=== PATIENT | male | born 1980 | race Caucasian/White ===

== ENCOUNTER 2020-01-12 00:33 | Emergency (ER) | payer MEDICAID ==
[2020-01-12] MEDS ORDERED: TRANDATE 20 MG/4 ML SYRINGE IV ONE ×5 (00:46→01:27)
[2020-01-12] MEDS ORDERED: HUMULIN R SQ ONE ×2 (00:47→05:17)
[2020-01-12] MEDS ORDERED: HUMULIN R IV ONE (00:47)
[2020-01-12] MEDS ORDERED: HUMULIN R ONE ×3 (00:51→05:20)
[2020-01-12 01:26] LABS: A-aADO2 18; ABG HEMOGLOBIN 14.9; ABG POTASSIUM 3.1 (3.5-5.1); ABG SITE rb; ARTERIAL BLD GAS O2 SATURATION 98.6 % (95-100); ARTERIAL BLOOD GAS BASE EXCESS 1.1 (-2.0-2.0); ARTERIAL BLOOD GAS FIO2 21 %; ARTERIAL BLOOD GAS PCO2 28 mmHg (35-45); ARTERIAL BLOOD GAS PO2 97 mmHg (75-100); ARTERIAL BLOOD GAS pH 7.52 (7.35-7.45); CARBOXYHEMOGLOBIN 2.8 % THgb (0.0-6.9); HCO3- 22.9 (22-28); HGB O2 SAT 94.7 g/dF (94-100); Methhemoglobin 1.2 % (1.4-1.5); paO2 pAO1 0.84
[2020-01-12] MEDS ORDERED: TRANDATE 100 MG/20 ML MDV FOR DRIP IV ONE (01:30)
[2020-01-12 01:37] LABS: INR 1.22 (0.8-3.0); PROTIME 13.8 SECONDS (8.83-12.87)
[2020-01-12 01:37] LABS: Appearance CLEAR (CLEAR); Bilirubin NEGATIVE (NEGATIVE); Blood NEGATIVE Ery/ul (0-5); Glucose >=500 mg/dL (NEGATIVE); Ketones TRACE (NEGATIVE); Leukocyte Esterase NEGATIVE (NEGATIVE); Nitrite NEGATIVE (NEGATIVE); Protein,Urine Dip 100 (Negative); Specific Gravity 1.027 (1.005-1.025); Urobilinogen NEGATIVE mg/dL (0-1)
[2020-01-12 01:42] LABS: ALBUMIN 3.2 g/dL (3.5-5.0); ALKALINE PHOSPHATASE 86 U/L (38-126); ANION GAP 9.3 MEQ/L (5-15); BLOOD UREA NITROGEN 14 mg/dL (9-20); CHLORIDE 106 mmol/L (98-107); Calcium 7.6 mg/dL (8.4-10.2); Carbon Dioxide 21 mmol/L (22-30); Creatinine 1 0.76 mg/dL (0.66-1.25); EST GLOMERULAR FILTRATION RATE > 60.0 ML/MIN; Glucose 378 mg/dL (74-106); SGOT/AST 23 U/L (17-59); SGPT/ALT 31 U/L (0-50); SODIUM 133 mmol/L (137-145); Total Protein 5.9 g/dL (6.3-8.2)
[2020-01-12 01:45] LABS: ACETAMINOPHEN < 10 ug/ml (10-30); Absolute Neutrophil Ct (ANC) 6.43 (1.4-6.9); BASOPHIL % 0.4 % (0.0-0.4); Basophil (Absolute #) 0.03 (0-0.4); ETHYL ALCOHOL < 10 mg/dL (0-10); Eosinophil % 0.9 % (0.00-5.0); Eosinophil (Absolute #) 0.07 (0-0.5); Hematocrit 30.2 % (42-50); Hemoglobin 10.6 gm/dl (12.5-18.0); Lymphocyte (Absolute #) 0.77 (1.0-4.6); Mean Cell Volume 78.9 fl (78-100); Mean Corpuscular Hemoglobin 27.7 pg (26-32); Mean Corpuscular Hgb Concent. 35.1 g/dl (32-36); Mean Platelet Volume 10.9 fl (7.5-11.0); Monocyte (Absolute #) 0.39 (0.0-1.3); Monocytes % 5.1 % (0.0-12.0); Neutrophil % 83.6 % (36.0-66.0); Platelet Count 149 K/mm3 (150-450); Potassium 2.5 mmol/L (3.5-5.1); Red Blood Count 3.83 M/mm3 (4.1-5.6); Red Cell Distribution Width 12.2 % (11.5-14.0); SALICYLATE < 1.0 mg/dL (2-20); White Blood Count 7.7 K/mm3 (4.0-10.5)
[2020-01-12] MEDS ORDERED: Klor Con 10 MEQ PO ONE ×2 (01:46→01:47)
[2020-01-12 01:51] LABS: Amphetamine,Urine NEGATIVE (NEGATIVE); Barbiturate,Urine NEGATIVE (NEGATIVE); Benzodiazepine,Urine NEGATIVE (NEGATIVE); Cocaine,Urine NEGATIVE (NEGATIVE); Methadone,Urine NEGATIVE (NEGATIVE); Opiate,Urine NEGATIVE (NEGATIVE); PCP,Urine NEGATIVE (NEGATIVE); THC,Urine NEGATIVE (NEGATIVE)
[2020-01-12] MEDS ORDERED: VASOTEC I.V. 2.5 MG IV ONE ×2 (02:04→02:05)
--- NOTE | 2020-01-12 02:04 | ERPHSYRPT ---
- History of Present Illness Source: EMS Exam Limitations: clinical condition Patient Subjective Stated Complaint: per ems pt was found by friends and was confused. they stated that pt had been working in the garage all day. Triage Nursing Assessment: pt oriented to person on arrival to er. skin warm and dry. pt arrive per ambulance and moves to stretcher per self. respirations nonlabored with lungs cta. pt tearful at times. pt poor historian at this time. Physician History: 39 yo wm from [facility] w mental status changes/hyperglycemia/Hypertension. Pt arrived to ER markedly hypertensive w good airway. He was lethargic and disoriented to year. Pt complained of a FARFAN, so was rushed to CT where head CT was neg per ER read and slightly later neg per Rad. He was immediately given 20mg IV Labetalol/10U sq regular insulin/10U IV regular insulin, after accucheck was close to 500. Pt became more alert and denied focal weakness/trauma/chest pain/cough/fever/melena/hematochezia/dysuria/hematuria. After further questioning, it became apparent that pt had not been taking his Glucophage or hypertensive meds. Timing/Duration: other (Unknown) Severity: moderate Character of Deficits: other (Lethargy/confusion) Deficits: weak Baseline/Normal Cognition: alert oriented x 3 Current Cognition: alert/disoriented to time Associated Symptoms: confusion, fatigue, No fever, No chills, No loss of consciousness, No nausea, No vomiting, No weakness, No insomnia, No muscle sp asms, No numbness/tingling in legs/feet, No paresthesia, No ringing in ears, No seizures, No slurred speech, No trouble walking, No vision changes, No chest pain Allergies/Adverse Reactions: No Known Drug Allergies Allergy (Verified 01/12/20 02:04) Hx Tetanus, Diphtheria Vaccination/Date Given: Yes Hx Influenza Vaccination/Date Given: No Hx Pneumococcal Vaccination/Date Given: No Immunizations Up to Date: Yes Travel Risk - International Travel Have you traveled outside of the country in past 3 weeks: No - Coronavirus Screening Are you exhibiting any of the following symptoms?: No Close contact with a COVID-19 positive Pt in past 14-21 Days: No - Review of Systems Constitutional: No Symptoms, Fatigue, Lethargy Eyes: No Symptoms Ears, Nose, & Throat: No Symptoms Respiratory: No Symptoms Cardiac: No Symptoms Abdominal/Gastrointestinal: No Symptoms Genitourinary Symptoms: No Symptoms Musculoskeletal: No Symptoms Skin: No Symptoms Neurological: Headache Psychological: No Alcohol Abuse, No Drug Abuse, No Anxiety, No Depression, No Suicidal Ideations, No Homicidal Ideations, No Emotional Lability, No Hallucinations, No Memory Loss, No Mood Changes Endocrine: No Symptoms Hematologic/Lymphatic: No Symptoms Immunological/Allergic: No Symptoms - Past Medical History Pertinent Past Medical History: Yes Cardiac History: Hypertension Endocrine Medical History: Diabetes Type II Other Medical History: pt poor historian - Past Surgical History Past Surgical History: No Other Surgical History: pt poor historian - Social History Smoking Status: Current every day smoker How long have you smoked: 21 yrs Exposure to second hand smoke: No Drug Use: none Patient Lives Alone: No Significant Family History: no pertinent family hx - Nursing Vital Signs Nursing Vital Signs: Initial Vital Signs Temperature 98.2 F 01/12/20 00:35 Pulse Rate 78 01/12/20 00:35 Respiratory Rate 18 01/12/20 00:35 Blood Pressure 185/138 01/12/20 00:35 O2 Sat by Pulse Oximetry 100 01/12/20 00:35 Pain Scale Pain Intensity 0 - Jenny Coma Scale Best Eye Response (Kenyon): (4) open spontaneously Best Verbal Response (Jenny): (4) confused conversation Best Motor Response (Jenny): (6) obeys commands [place] Total: 14 - Physical Exam General Appearance: mild distress Eye Exam: bilateral eye: normal inspection, PERRL, EOMI Ears, Nose, Throat Exam: normal ENT inspection, TMs normal, pharynx normal Neck Exam: normal inspection, non-tender, No meningismus, No mass, No Brudzinski, No Kernig's Respiratory: normal breath sounds, lungs clear, airway intact Cardiovascular: regular rate/rhythm, normal peripheral pulses, No murmur Gastrointestinal: soft, normal bowel sounds, No tenderness Rectal Exam: deferred Back Exam: normal inspection, normal range of motion, No CVA tenderness, No vertebral tenderness Extremity Exam: normal inspection, normal range of motion, pelvis stable Peripheral Pulses: carotid (R): 2+, carotid (L): 2+ Mental Status: oriented x 3, lethargy communications strategist Exam: normal hearing, normal speech, PERRL, No abnormal gag reflex Motor/Sensory: no motor deficit, no sensory deficit, no pronator drift, negative Babinski's sign DTR: bicep (R): 2+, bicep (L): 2+, knee (R): 2+, knee (L): 2+ Skin Exam: normal color, warm, dry SpO2 Interpretation: normal SpO2: 100 O2 Delivery: Room Air - Course EKG Interpreted by Me: RATE (NSR/R74/Borderline prolonged QTc/Flattened T waves) - CT Exams Head CT Interpretation: Tele-radiologist Report (Nothing acute) Other CT Interpretation: Tele-radiologist Report (CTA head/neck neg per telerad) Ordered Tests: Active Orders 24 hr Category Date Time Status CT ANGIOGRAPHY NECK [CT] Routine Exams 01/12/20 02:58 Taken CTA HEAD W AND/OR WO CONTRAST [CT] Stat Exams 01/12/20 02:48 Taken HEAD WITHOUT CONTRAST [CT] Stat Exams 01/12/20 00:35 Taken ABG [ARTERIAL BLOOD GASES] Stat Lab 01/12/20 01:20 Completed ACETAMINOPHEN Stat Lab 01/12/20 01:10 Completed BMP Stat Lab 01/12/20 03:48 Completed CBC W DIFF Stat Lab 01/12/20 01:10 Completed CK (IN-HOUSE) [CK-Creatinine Phosphokinase] Stat Lab 01/12/20 01:10 Completed CMP Stat Lab 01/12/20 01:10 Completed CULTURE,URINE Stat Lab 01/12/20 01:03 Received ETHYL ALCOHOL Stat Lab 01/12/20 01:10 Completed Lactic Acid Stat Lab 01/12/20 01:10 Completed Lactic Acid Stat Lab 01/12/20 04:20 Completed POCT GLUCOSE Stat Lab 01/12/20 00:44 Completed POCT GLUCOSE Stat Lab 01/12/20 01:56 Completed POCT GLUCOSE Stat Lab 01/12/20 05:15 Completed PROTIME WITH INR Stat Lab 01/12/20 01:10 Completed SALICYLATE Stat Lab 01/12/20 01:10 Completed TROPONIN Q3H Lab 01/12/20 01:10 Completed TROPONIN Q3H Lab 01/12/20 05:15 Completed TROPONIN Q3H Lab 01/12/20 07:00 Ordered TROPONIN Q3H Lab 01/12/20 10:00 Ordered TROPONIN Q3H Lab 01/12/20 13:00 Ordered TROPONIN Q3H Lab 01/12/20 16:00 Ordered TROPONIN Q3H Lab 01/12/20 19:00 Ordered TROPONIN Q3H Lab 01/12/20 22:00 Ordered UA W/RFX UR CULTURE Stat Lab 01/12/20 01:03 Completed Urine Triage Profile Stat Lab 01/12/20 01:03 Completed Medication Summary Generic Name Dose Route Start Last Admin Trade Name Ally PRN Reason Stop Dose Admin Nicardipine HCl 25 mg/ Sodium 250 mls @ 50 mls/hr 01/12/20 02:45 01/12/20 06:02 Chloride IV 02/11/20 02:44 5 mg/hr .Q5H PRN 50 mls/hr TITRATE FOR BLOOD PRESSURE Titration Protocol 5 MG/HR Discontinued Medications Generic Name Dose Route Start Last Admin Trade Name Freq PRN Reason Stop Dose Admin Albuterol Sulfate 2.5 mg 01/12/20 05:41 Proventil 2.5 Mg/3 Ml Neb IH 01/12/20 05:42 STAT ONE Enalaprilat 1.25 mg 01/12/20 02:04 01/12/20 02:08 Vasotec I.V. 2.5 Mg IV 01/12/20 02:05 1.25 mg STAT ONE Administration Enalaprilat Confirm 01/12/20 02:05 Vasotec I.V. 2.5 Mg Administered 01/12/20 02:06 Dose 2.5 mg IV .STK-MED ONE Dextrose Confirm 01/12/20 02:49 Dextrose 5%/Water Iv Soln. 250 Ml Administered 01/12/20 02:50 Dose 250 mls @ ud IV .STK-MED ONE Sodium Chloride Confirm 01/12/20 02:56 Sodium Chloride 0.9% 250 Ml Administered 01/12/20 02:57 Dose 250 mls @ ud IV .STK-MED ONE Sodium Chloride 1,000 mls @ 999 mls/hr 01/12/20 04:19 01/12/20 05:32 Sodium Chloride 0.9% 1000 Ml IV 01/12/20 05:19 Infused .Q1H1M STA Infusion Sodium Chloride Confirm 01/12/20 04:21 Sodium Chloride 0.9% 1000 Ml Administered 01/12/20 04:22 Dose 1,000 mls @ ud .ROUTE .STK-MED ONE Insulin Human Regular 10 unit 01/12/20 00:47 01/12/20 00:53 Humulin R IV 01/12/20 00:48 10 unit STAT ONE Administration Insulin Human Regular 10 unit 01/12/20 00:47 01/12/20 00:54 Humulin R SQ 01/12/20 00:48 10 unit STAT ONE Administration Insulin Human Regular Confirm 01/12/20 00:51 Humulin R Administered 01/12/20 00:52 Dose 20 unit .ROUTE .STK-MED ONE Insulin Human Regular Confirm 01/12/20 00:52 Humulin R Administered 01/12/20 00:53 Dose 1 unit .ROUTE .STK-MED ONE Insulin Human Regular 10 unit 01/12/20 05:17 01/12/20 05:22 Humulin R SQ 01/12/20 05:18 10 unit STAT ONE Administration Insulin Human Regular Confirm 01/12/20 05:20 Humulin R Administered 01/12/20 05:21 Dose 10 unit .ROUTE .STK-MED ONE Ketorolac Tromethamine 15 mg 01/12/20 04:19 01/12/20 04:25 Toradol 30 Mg Injection IV 01/12/20 04:20 15 mg STAT ONE Administration Ketorolac Tromethamine Confirm 01/12/20 04:21 Toradol 30 Mg Injection Administered 01/12/20 04:22 Dose 30 mg .ROUTE .STK-MED ONE Labetalol HCl 20 mg 01/12/20 00:46 01/12/20 00:52 Trandate 20 Mg/5 Ml Syringe IV 01/12/20 00:47 20 mg STAT ONE Administration Labetalol HCl Confirm 01/12/20 00:46 Trandate 20 Mg/5 Ml Syringe Administered 01/12/20 00:47 Dose 20 mg IV .STK-MED ONE Labetalol HCl 40 mg 01/12/20 00:58 01/12/20 01:01 Trandate 20 Mg/5 Ml Syringe IV 01/12/20 00:59 40 mg STAT ONE Administration Labetalol HCl Confirm 01/12/20 00:59 Trandate 20 Mg/5 Ml Syringe Administered 01/12/20 01:00 Dose 40 mg IV .STK-MED ONE Labetalol HCl 80 mg 01/12/20 01:27 01/12/20 01:33 Trandate 20 Mg/5 Ml Syringe IV 01/12/20 01:28 80 mg STAT ONE Administration Labetalol HCl Confirm 01/12/20 01:30 Trandate 100 Mg/20 Ml Mdv For Drip Administered 01/12/20 01:31 Dose 100 mg IV .STK-MED ONE Nicardipine HCl Confirm 01/12/20 02:49 Cardene 25 Mg/10 Ml Administered 01/12/20 02:50 Dose 25 mg IV .STK-MED ONE Nicardipine HCl Confirm 01/12/20 02:56 Cardene 25 Mg/10 Ml Administered 01/12/20 02:57 Dose 25 mg IV .STK-MED ONE Potassium Chloride 40 meq 01/12/20 01:46 01/12/20 01:48 Klor Con 10 Meq PO 01/12/20 01:47 40 meq STAT ONE Administration Potassium Chloride Confirm 01/12/20 01:47 Klor Con 10 Meq Administered 01/12/20 01:48 Dose 40 meq PO .STK-MED ONE Lab/Rad Data: Laboratory Result Diagrams 01/12/20 01:10 01/12/20 03:48 Laboratory Results 01/12/20 01/12/20 01/12/20 Range/Units 05:15 05:15 04:20 WBC (4.0-10.5) K/mm3 RBC (4.1-5.6) M/mm3 Hgb (12.5-18.0) gm/dl Hct (42-50) % MCV (78-100) fl MCH (26-32) pg MCHC (32-36) g/dl RDW (11.5-14.0) % Plt Count (150-450) K/mm3 MPV (7.5-11.0) fl Gran % (36.0-66.0) % Eos # (Auto) (0-0.5) Absolute Lymphs (auto) (1.0-4.6) Absolute Monos (auto) (0.0-1.3) Lymphocytes % (24.0-44.0) % Monocytes % (0.0-12.0) % Eosinophils % (0.00-5.0) % Basophils % (0.0-0.4) % Absolute Granulocytes (1.4-6.9) Basophils # (0-0.4) PT (8.83-12.87) SECONDS INR (0.8-3.0) Puncture Site pCO2 (35-45) mmHg pO2 (75-100) mmHg Base Excess (-2.0-2.0) O2 Saturation (94-100) g/dF ABG pH (7.35-7.45) ABG HCO3 (22-28) ABG O2 Sat (Measured) (95-100) % Franck Test A-a Gradient a/A Ratio Hemoglobin Carboxyhemoglobin (0.0-6.9) % THgb Methemoglobin (1.4-1.5) % Temperature C POC O2 Flow Rate % Sodium (137-145) mmol/L Potassium (3.5-5.1) mmol/L Chloride (98-107) mmol/L Carbon Dioxide (22-30) mmol/L Anion Gap (5-15) MEQ/L BUN (9-20) mg/dL Creatinine (0.66-1.25) mg/dL Estimated GFR ML/MIN Glucose (74-106) mg/dL POC Glucometer 311 H (74 to 106) mg/dL Lactic Acid 3.1 H (0.4-2.0) Calcium (8.4-10.2) mg/dL Total Bilirubin (0.2-1.3) mg/dL AST (17-59) U/L ALT (0-50) U/L Alkaline Phosphatase (38-126) U/L Creatine Kinase (55-170) U/L Troponin I 0.026 (0.000-0.034) ng/mL Serum Total Protein (6.3-8.2) g/dL Albumin (3.5-5.0) g/dL Urine Color (YELLOW) Urine Appearance (CLEAR) Urine pH (5-6) Ur Specific [place] (1.005-1.025) Urine Protein (Negative) Urine Ketones (NEGATIVE) Urine Blood (0-5) Nato/ul Urine Nitrite (NEGATIVE) Urine Bilirubin (NEGATIVE) Urine Urobilinogen (0-1) mg/dL Ur Leukocyte Esterase (NEGATIVE) Urine WBC (Auto) (0-5) /HPF Urine RBC (Auto) (0-2) /HPF U Epithel Cells (Auto) (FEW) /HPF Urine Bacteria (Auto) (NEGATIVE) /HPF Urine Culture Reflexed (NO) Urine Glucose (NEGATIVE) mg/dL Salicylates (2-20) mg/dL Urine Opiates Level (NEGATIVE) Ur Methadone (NEGATIVE) Acetaminophen (10-30) ug/ml Urine Barbiturates (NEGATIVE) Ur Phencyclidine (PCP) (NEGATIVE) Urine Amphetamine (NEGATIVE) U Benzodiazepine Level (NEGATIVE) Urine Cocaine (NEGATIVE) Urine Marijuana (THC) (NEGATIVE) Ethyl Alcohol (0-10) mg/dL 01/12/20 01/12/20 01/12/20 Range/Units 03:48 01:56 01:20 WBC (4.0-10.5) K/mm3 RBC (4.1-5.6) M/mm3 Hgb (12.5-18.0) gm/dl Hct (42-50) % MCV (78-100) fl MCH (26-32) pg MCHC (32-36) g/dl RDW (11.5-14.0) % Plt Count (150-450) K/mm3 MPV (7.5-11.0) fl Gran % (36.0-66.0) % Eos # (Auto) (0-0.5) Absolute Lymphs (auto) (1.0-4.6) Absolute Monos (auto) (0.0-1.3) Lymphocytes % (24.0-44.0) % Monocytes % (0.0-12.0) % Eosinophils % (0.00-5.0) % Basophils % (0.0-0.4) % Absolute Granulocytes (1.4-6.9) Basophils # (0-0.4) PT (8.83-12.87) SECONDS INR (0.8-3.0) Puncture Site rb pCO2 28 L (35-45) mmHg pO2 97 (75-100) mmHg Base Excess 1.1 (-2.0-2.0) O2 Saturation 94.7 (94-100) g/dF ABG pH 7.52 H (7.35-7.45) ABG HCO3 22.9 (22-28) ABG O2 Sat (Measured) 98.6 (95-100) % Franck Test na A-a Gradient 18 a/A Ratio 0.84 Hemoglobin 14.9 Carboxyhemoglobin 2.8 (0.0-6.9) % THgb Methemoglobin 1.2 L (1.4-1.5) % Temperature 37.0 C POC O2 Flow Rate 21 % Sodium 132 L (137-145) mmol/L Potassium 3.4 L D 3.1 L (3.5-5.1) mmol/L Chloride 101 (98-107) mmol/L Carbon Dioxide 23 (22-30) mmol/L Anion Gap 11.0 (5-15) MEQ/L BUN 14 (9-20) mg/dL Creatinine 0.77 (0.66-1.25) mg/dL Estimated GFR > 60.0 ML/MIN Glucose 307 H (74-106) mg/dL POC Glucometer 271 H (74 to 106) mg/dL Lactic Acid (0.4-2.0) Calcium 8.6 (8.4-10.2) mg/dL Total Bilirubin (0.2-1.3) mg/dL AST (17-59) U/L ALT (0-50) U/L Alkaline Phosphatase (38-126) U/L Creatine Kinase (55-170) U/L Troponin I (0.000-0.034) ng/mL Serum Total Protein (6.3-8.2) g/dL Albumin (3.5-5.0) g/dL Urine Color (YELLOW) Urine Appearance (CLEAR) Urine pH (5-6) Ur Specific [place] (1.005-1.025) Urine Protein (Negative) Urine Ketones (NEGATIVE) Urine Blood (0-5) Nato/ul Urine Nitrite (NEGATIVE) Urine Bilirubin (NEGATIVE) Urine Urobilinogen (0-1) mg/dL Ur Leukocyte Esterase (NEGATIVE) Urine WBC (Auto) (0-5) /HPF Urine RBC (Auto) (0-2) /HPF U Epithel Cells (Auto) (FEW) /HPF Urine Bacteria (Auto) (NEGATIVE) /HPF Urine Culture Reflexed (NO) Urine Glucose (NEGATIVE) mg/dL Salicylates (2-20) mg/dL Urine Opiates Level (NEGATIVE) Ur Methadone (NEGATIVE) Acetaminophen (10-30) ug/ml Urine Barbiturates (NEGATIVE) Ur Phencyclidine (PCP) (NEGATIVE) Urine Amphetamine (NEGATIVE) U Benzodiazepine Level (NEGATIVE) Urine Cocaine (NEGATIVE) Urine Marijuana (THC) (NEGATIVE) Ethyl Alcohol (0-10) mg/dL 01/12/20 01/12/20 01/12/20 Range/Units 01:10 01:10 01:10 WBC (4.0-10.5) K/mm3 RBC (4.1-5.6) M/mm3 Hgb (12.5-18.0) gm/dl Hct (42-50) % MCV (78-100) fl MCH (26-32) pg MCHC (32-36) g/dl RDW (11.5-14.0) % Plt Count (150-450) K/mm3 MPV (7.5-11.0) fl Gran % (36.0-66.0) % Eos # (Auto) (0-0.5) Absolute Lymphs (auto) (1.0-4.6) Absolute Monos (auto) (0.0-1.3) Lymphocytes % (24.0-44.0) % Monocytes % (0.0-12.0) % Eosinophils % (0.00-5.0) % Basophils % (0.0-0.4) % Absolute Granulocytes (1.4-6.9) Basophils # (0-0.4) PT 13.8 H (8.83-12.87) SECONDS INR 1.22 (0.8-3.0) Puncture Site pCO2 (35-45) mmHg pO2 (75-100) mmHg Base Excess (-2.0-2.0) O2 Saturation (94-100) g/dF ABG pH (7.35-7.45) ABG HCO3 (22-28) ABG O2 Sat (Measured) (95-100) % Franck Test A-a Gradient a/A Ratio Hemoglobin Carboxyhemoglobin (0.0-6.9) % THgb Methemoglobin (1.4-1.5) % Temperature C POC O2 Flow Rate % Sodium (137-145) mmol/L Potassium (3.5-5.1) mmol/L Chloride (98-107) mmol/L Carbon Dioxide (22-30) mmol/L Anion Gap (5-15) MEQ/L BUN (9-20) mg/dL Creatinine (0.66-1.25) mg/dL Estimated GFR ML/MIN Glucose (74-106) mg/dL POC Glucometer (74 to 106) mg/dL Lactic Acid (0.4-2.0) Calcium (8.4-10.2) mg/dL Total Bilirubin (0.2-1.3) mg/dL AST (17-59) U/L ALT (0-50) U/L Alkaline Phosphatase (38-126) U/L Creatine Kinase 119 (55-170) U/L Troponin I 0.015 (0.000-0.034) ng/mL Serum Total Protein (6.3-8.2) g/dL Albumin (3.5-5.0) g/dL Urine Color (YELLOW) Urine Appearance (CLEAR) Urine pH (5-6) Ur Specific [place] (1.005-1.025) Urine Protein (Negative) Urine Ketones (NEGATIVE) Urine Blood (0-5) Nato/ul Urine Nitrite (NEGATIVE) Urine Bilirubin (NEGATIVE) Urine Urobilinogen (0-1) mg/dL Ur Leukocyte Esterase (NEGATIVE) Urine WBC (Auto) (0-5) /HPF Urine RBC (Auto) (0-2) /HPF U Epithel Cells (Auto) (FEW) /HPF Urine Bacteria (Auto) (NEGATIVE) /HPF Urine Culture Reflexed (NO) Urine Glucose (NEGATIVE) mg/dL Salicylates (2-20) mg/dL Urine Opiates Level (NEGATIVE) Ur Methadone (NEGATIVE) Acetaminophen (10-30) ug/ml Urine Barbiturates (NEGATIVE) Ur Phencyclidine (PCP) (NEGATIVE) Urine Amphetamine (NEGATIVE) U Benzodiazepine Level (NEGATIVE) Urine Cocaine (NEGATIVE) Urine Marijuana (THC) (NEGATIVE) Ethyl Alcohol (0-10) mg/dL 01/12/20 01/12/20 01/12/20 Range/Units 01:10 01:10 01:10 WBC 7.7 (4.0-10.5) K/mm3 RBC 3.83 L (4.1-5.6) M/mm3 Hgb 10.6 L (12.5-18.0) gm/dl Hct 30.2 L (42-50) % MCV 78.9 (78-100) fl MCH 27.7 (26-32) pg MCHC 35.1 (32-36) g/dl RDW 12.2 (11.5-14.0) % Plt Count 149 L (150-450) K/mm3 MPV 10.9 (7.5-11.0) fl Gran % 83.6 H (36.0-66.0) % Eos # (Auto) 0.07 (0-0.5) Absolute Lymphs (auto) 0.77 L (1.0-4.6) Absolute Monos (auto) 0.39 (0.0-1.3) Lymphocytes % 10.0 L (24.0-44.0) % Monocytes % 5.1 (0.0-12.0) % Eosinophils % 0.9 (0.00-5.0) % Basophils % 0.4 (0.0-0.4) % Absolute Granulocytes 6.43 (1.4-6.9) Basophils # 0.03 (0-0.4) PT (8.83-12.87) SECONDS INR (0.8-3.0) Puncture Site pCO2 (35-45) mmHg pO2 (75-100) mmHg Base Excess (-2.0-2.0) O2 Saturation (94-100) g/dF ABG pH (7.35-7.45) ABG HCO3 (22-28) ABG O2 Sat (Measured) (95-100) % Franck Test A-a Gradient a/A Ratio Hemoglobin Carboxyhemoglobin (0.0-6.9) % THgb Methemoglobin (1.4-1.5) % Temperature C POC O2 Flow Rate % Sodium 133 L (137-145) mmol/L Potassium 2.5 L* (3.5-5.1) mmol/L Chloride 106 (98-107) mmol/L Carbon Dioxide 21 L (22-30) mmol/L Anion Gap 9.3 (5-15) MEQ/L BUN 14 (9-20) mg/dL Creatinine 0.76 (0.66-1.25) mg/dL Estimated GFR > 60.0 ML/MIN Glucose 378 H (74-106) mg/dL POC Glucometer (74 to 106) mg/dL Lactic Acid 2.3 H (0.4-2.0) Calcium 7.6 L (8.4-10.2) mg/dL Total Bilirubin 0.60 (0.2-1.3) mg/dL AST 23 (17-59) U/L ALT 31 (0-50) U/L Alkaline Phosphatase 86 (38-126) U/L Creatine Kinase (55-170) U/L Troponin I (0.000-0.034) ng/mL Serum Total Protein 5.9 L (6.3-8.2) g/dL Albumin 3.2 L (3.5-5.0) g/dL Urine Color (YELLOW) Urine Appearance (CLEAR) Urine pH (5-6) Ur Specific [place] (1.005-1.025) Urine Protein (Negative) Urine Ketones (NEGATIVE) Urine Blood (0-5) Nato/ul Urine Nitrite (NEGATIVE) Urine Bilirubin (NEGATIVE) Urine Urobilinogen (0-1) mg/dL Ur Leukocyte Esterase (NEGATIVE) Urine WBC (Auto) (0-5) /HPF Urine RBC (Auto) (0-2) /HPF U Epithel Cells (Auto) (FEW) /HPF Urine Bacteria (Auto) (NEGATIVE) /HPF Urine Culture Reflexed (NO) Urine Glucose (NEGATIVE) mg/dL Salicylates < 1.0 L (2-20) mg/dL Urine Opiates Level (NEGATIVE) Ur Methadone (NEGATIVE) Acetaminophen < 10 L (10-30) ug/ml Urine Barbiturates (NEGATIVE) Ur Phencyclidine (PCP) (NEGATIVE) Urine Amphetamine (NEGATIVE) U Benzodiazepine Level (NEGATIVE) Urine Cocaine (NEGATIVE) Urine Marijuana (THC) (NEGATIVE) Ethyl Alcohol < 10 (0-10) mg/dL 01/12/20 01/12/20 01/12/20 Range/Units 01:03 01:03 00:44 WBC (4.0-10.5) K/mm3 RBC (4.1-5.6) M/mm3 Hgb (12.5-18.0) gm/dl Hct (42-50) % MCV (78-100) fl MCH (26-32) pg MCHC (32-36) g/dl RDW (11.5-14.0) % Plt Count (150-450) K/mm3 MPV (7.5-11.0) fl Gran % (36.0-66.0) % Eos # (Auto) (0-0.5) Absolute Lymphs (auto) (1.0-4.6) Absolute Monos (auto) (0.0-1.3) Lymphocytes % (24.0-44.0) % Monocytes % (0.0-12.0) % Eosinophils % (0.00-5.0) % Basophils % (0.0-0.4) % Absolute Granulocytes (1.4-6.9) Basophils # (0-0.4) PT (8.83-12.87) SECONDS INR (0.8-3.0) Puncture Site pCO2 (35-45) mmHg pO2 (75-100) mmHg Base Excess (-2.0-2.0) O2 Saturation (94-100) g/dF ABG pH (7.35-7.45) ABG HCO3 (22-28) ABG O2 Sat (Measured) (95-100) % Franck Test A-a Gradient a/A Ratio Hemoglobin Carboxyhemoglobin (0.0-6.9) % THgb Methemoglobin (1.4-1.5) % Temperature C POC O2 Flow Rate % Sodium (137-145) mmol/L Potassium (3.5-5.1) mmol/L Chloride (98-107) mmol/L Carbon Dioxide (22-30) mmol/L Anion Gap (5-15) MEQ/L BUN (9-20) mg/dL Creatinine (0.66-1.25) mg/dL Estimated GFR ML/MIN Glucose (74-106) mg/dL POC Glucometer 494 H (74 to 106) mg/dL Lactic Acid (0.4-2.0) Calcium (8.4-10.2) mg/dL Total Bilirubin (0.2-1.3) mg/dL AST (17-59) U/L ALT (0-50) U/L Alkaline Phosphatase (38-126) U/L Creatine Kinase (55-170) U/L Troponin I (0.000-0.034) ng/mL Serum Total Protein (6.3-8.2) g/dL Albumin (3.5-5.0) g/dL Urine Color STRAW (YELLOW) Urine Appearance CLEAR (CLEAR) Urine pH 7.0 (5-6) Ur Specific [place] 1.027 (1.005-1.025) Urine Protein 100 (Negative) Urine Ketones TRACE (NEGATIVE) Urine Blood NEGATIVE (0-5) [place]/ul Urine Nitrite NEGATIVE (NEGATIVE) Urine Bilirubin NEGATIVE (NEGATIVE) Urine Urobilinogen NEGATIVE (0-1) mg/dL Ur Leukocyte Esterase NEGATIVE (NEGATIVE) Urine WBC (Auto) NONE (0-5) /HPF Urine RBC (Auto) NONE (0-2) /HPF U Epithel Cells (Auto) NONE (FEW) /HPF Urine Bacteria (Auto) NONE (NEGATIVE) /HPF Urine Culture Reflexed ORDERED SEPARATELY (NO) Urine Glucose >=500 (NEGATIVE) mg/dL Salicylates (2-20) mg/dL Urine Opiates Level NEGATIVE (NEGATIVE) Ur Methadone NEGATIVE (NEGATIVE) Acetaminophen (10-30) ug/ml Urine Barbiturates NEGATIVE (NEGATIVE) Ur Phencyclidine (PCP) NEGATIVE (NEGATIVE) Urine Amphetamine NEGATIVE (NEGATIVE) U Benzodiazepine Level NEGATIVE (NEGATIVE) Urine Cocaine NEGATIVE (NEGATIVE) Urine Marijuana (THC) NEGATIVE (NEGATIVE) Ethyl Alcohol (0-10) mg/dL - Progress Progress: improved Progress Note: 01/12/20 04:22 1L NS bolus/10units IV Regular insulin/10units sq insulin w decrease in glucose Labetalol 20mg/40mg/80 mg IV w minimal improvement in BP 01/12/20 04:25 Vasotec 1.25mg IV w minimal improvement in BP Nicardipine drip started w improvement in BP 01/12/20 05:[address] Quintero 01/12/20 06:[address] Craig 01/12/20 06:36 Pt stable when care assumed by EMS Discussed with : Hernando Counseled pt/family regarding: lab results, diagnosis, rad results - Departure Clinical Impression: Hypertensive urgency, Hyperglycemia due to diabetes mellitus, Pancytopenia, Lactic acidosis Condition: Stable Critical Care Time: Yes Critical Care Time(excluding separately billable procedures): Critical 30-74 mins Referrals: MARGARITA VILLAFUERTE [Primary Care Provider] -
[2020-01-12] MEDS ORDERED: CARDENE 25 MG/10 ML*** 25 MG in Sodium Chloride 0.9% 250 ML 240 ML IV PRN (02:45)
[2020-01-12] MEDS ORDERED: CARDENE 25 MG/10 ML IV ONE ×2 (02:49→02:56)
[2020-01-12] MEDS ORDERED: DEXTROSE IV ONE (02:49)
[2020-01-12] MEDS ORDERED: WATER IV ONE (02:49)
[2020-01-12] MEDS ORDERED: Sodium Chloride 0.9% 250 ML 250 ML IV ONE (02:56)
[2020-01-12] MEDS ORDERED: Sodium Chloride 0.9% 1000 ML 1,000 ML IV STA (04:19)
[2020-01-12] MEDS ORDERED: TORAdol 30 mg Injection IV ONE (04:19)
[2020-01-12] MEDS ORDERED: TORAdol 30 mg Injection ONE (04:21)
[2020-01-12] MEDS ORDERED: Sodium Chloride 0.9% 1000 ML 1,000 ML ONE (04:21)
[2020-01-12 05:26] LABS: BLOOD UREA NITROGEN 14 mg/dL (9-20); CHLORIDE 101 mmol/L (98-107); Calcium 8.6 mg/dL (8.4-10.2); Carbon Dioxide 23 mmol/L (22-30); Creatinine 1 0.77 mg/dL (0.66-1.25); EST GLOMERULAR FILTRATION RATE > 60.0 ML/MIN; Glucose 307 mg/dL (74-106); Potassium 3.4 mmol/L (3.5-5.1); SODIUM 132 mmol/L (137-145)
[2020-01-12] MEDS ORDERED: PROVENTIL 2.5 MG/3 ML NEB IH ONE (05:41)
[2020-01-12 06:00] VITALS: O2SAT 100
[2020-01-12 06:49] VITALS: BP 139/81; PULSE 84
--- NOTE | 2020-01-12 07:44 | XRAY ---
Indication: Frontal headache, posterior neck pain, altered mental status, and high blood pressure. Conventional CTA neck performed using 80 cc Isovue 370 contrast. Two-dimensional sagittal and coronal reformatted images obtained. Additional 3-dimensional reformatted images obtained using a separate workstation. Comparison: None Visualized aortic arch is normal in course and caliber with normal branching right brachiocephalic, left common carotid, and left subclavian arteries. Examination of the right carotid circulation demonstrates widely patent common carotid, carotid bulb, internal carotid, and external carotid arteries. Examination of the left carotid circulation also demonstrates widely patent common carotid, carotid bulb, internal carotid, and external carotid arteries. Vertebral arteries are normal in CTA appearance with left slightly larger in caliber. CTA head and CT head reported separately. Scattered subcentimeter cervical/submandibular lymph nodes, none pathologically enlarged. Thyroid gland enhances homogeneously. Supra and infraglottic airway widely patent. Underlying cervical spine intact. Lung apices are clear. Impression: Normal CTA neck. Comment: Preliminary interpretation made by C. No critical discrepancy.
--- NOTE | 2020-01-12 07:48 | XRAY ---
Indication: Confusion and frontal headache. High blood pressure. Multiple contiguous axial images obtained through the head without contrast. Comparison: None Normal appearing brain parenchyma, ventricles, and bony calvarium. Visualized paranasal sinuses and mastoid air cells are clear. Impression: Normal CT head without contrast exam. Comment: Preliminary interpretation was made by [facility]. No critical discrepancy.
--- NOTE | 2020-01-12 07:48 | XRAY ---
Indication: Frontal headache, posterior neck pain, altered mental status, and high blood pressure. Conventional CTA head performed using 80 cc Isovue 370 contrast. Two-dimensional sagittal and coronal reformatted images obtained. Additional 3-dimensional reformatted images obtained using a separate workstation. Comparison: None CTA neck and CT head reported separately. Distal internal carotid arteries are bilaterally symmetric without critical stenosis, obstruction, or AV malformation. Normal carotid terminus with normal branching A1 and M1 segments bilaterally. More distal anterior cerebral, middle cerebral, anterior communicating, and posterior communicating arteries are normal in CTA appearance. Posterior circulation demonstrates bilaterally symmetric distal vertebral arteries. Basilar artery, posterior cerebral, and superior cerebral arteries are normal in CTA appearance. There is no abnormal enhancing intra-axial or extra-axial mass. Impression: Normal CTA head. Comment: Preliminary interpretation made by [facility]. No critical discrepancy.
== END 2020-01-12 06:40 | disposition short-term general hospital (02) ==
LOC: ED 00:33 → MERGE 00:33 → ED 06:40
DX: I16.0 Hypertensive urgency (principal); R41.0 Disorientation, unspecified; R53.83 Other fatigue; I10 Essential (primary) hypertension; E11.65 Type 2 diabetes mellitus with hyperglycemia; D61.818 Other pancytopenia; E87.2 Acidosis
CPT/HCPCS: 36000; 36415; 36600; 70450; 70496; 70498; 80048; 80053; 80307; 81001; 82375; 82550; 82803; 82947; 83605; 84484; 85025; 85610; 87086; 96360; 96372; 96374; 96375; 96376; 99285; 99291; J1815; J1885; A9270-GY; G0480